=== PATIENT | male | born 1935 | race African-American/Black ===

== ENCOUNTER → 2019-01-23 | Outpatient (CLI) | payer MEDICARE, BC ==
[~2019-01-23] MED LIST: AMLO10TA80 PO; ASPI-1158 PO; CALC667C PO; FOLI0.8T23 PO; GLIP5TAB12 PO; HYDR-4135 PO; LEVO25TA7 PO; OMEP40CA34 PO; SODI650T PO
== END | disposition home or self-care (01) ==
LOC: CARD 09:30
PROVIDERS: ATTEND Psychiatry & Neurology Neurology
DX: G25.0 Essential tremor (principal); R41.3 Other amnesia

== ENCOUNTER 2019-02-25 18:52 | Inpatient (IN) | payer MEDICARE, BC ==
[~2019-02-25] VITALS: Ht 175.3 cm; Wt 59.4 kg
[2019-02-25 20:04] LABS: BASOPHILS % 0.7 % (0.0-2.0); EOSINOPHILS % 0.9 % (0.0-5.0); HEMATOCRIT. 24.8 % (42.0-52.0); LYMPHOCYTES % 29.3 % (20.0-50.0); MEAN CORPUSCULAR HEMOGLOBIN 29.2 pg (28.0-32.0); MEAN CORPUSCULAR VOLUME 90.6 fL (80.0-94.0); MEAN PLATELET VOLUME 8.3 fl (7.4-10.4); MONOCYTES % 11.1 % (2.0-8.0); PLATELET 255 x1000/uL (130-400); RED BLOOD CELL COUNT 2.74 mill/uL (4.7-6.1); RED CELL DISTRIBUTION WIDTH 16.9 % (11.6-14.6)
[2019-02-25 20:10] LABS: CHLORIDE 112 mEq/L (98-107)
[2019-02-25 20:16] LABS: PHOSPHORUS 2.7 mg/dL (2.5-4.9)
[2019-02-25] MEDS ORDERED: POTASSIUM CHLORIDE 10MEQ TABLET SR PO SCH (21:45)
[2019-02-26] MEDS ORDERED: LORAZEPAM 0.5MG TABLET PO PRN (10:30)
[2019-02-26] MEDS ORDERED: ACETAMINOPHEN 325MG TABLET PO PRN (10:30)
[2019-02-26] MEDS ORDERED: GUAIFENESIN 200MG/10ML SUGAR FREE UDC PO PRN (10:30)
[2019-02-26] MEDS ORDERED: MAGNESIUM/ALUMINUM HYDROXIDE/SIMETHICONE 30ML UDC PO PRN (10:30)
[2019-02-26] MEDS ORDERED: HYDROCODONE/ACETAMINOPHEN 5/325MG TABLET PO PRN (10:30)
[2019-02-26] MEDS ORDERED: ONDANSETRON HCL 4MG/2ML INJ IV PRN (10:30)
[2019-02-26] MEDS ORDERED: ACETAMINOPHEN 650MG SUPP PR PRN (10:30)
[2019-02-26] MEDS ORDERED: IPRATROPIUM/ALBUTEROL 0.5-3(2.5)MG/3ML NEB INH PRN (10:30)
[2019-02-26] MEDS ORDERED: CLONIDINE 0.1MG TABLET PO PRN (10:30)
[2019-02-26] MEDS ORDERED: DOCUSATE SODIUM 100MG CAPSULE PO PRN (10:30)
[2019-02-26] MEDS ORDERED: DIPHENHYDRAMINE 50MG/ML VIAL IV PRN (10:30)
[2019-02-26 10:52] LABS: BG BASE EXCESS -3.2 mmol/L (-2.0-2.0); BG DEOXYHEMOGLOBIN 2.6 % (0.0-5.0); BG HCO3 ACT 21.8 mmol/L (22.0-26.0); BG METHEMOGLOBIN 0.1 % (0.0-1.5); BG OXYGEN SATURATION 97.4 % (92.0-98.5); BG OXYHEMOGLOBIN 97.3 % (94.0-97.0); BG PCO2 39.1 mmHg (35.0-45.0); BG PH 7.365 (7.350-7.450); BG PO2 103.2 mmHg (75.0-100.0); BG SAMPLE SITE RIGHT BRACHIAL; BG TOTAL HEMOGLOBIN 9.8 g/dL (12.0-18.0); BG VENT MODE ROOM AIR
[2019-02-26 11:02] VITALS: BP 161/81
[2019-02-26] MEDS: AMLODIPINE 5MG TABLET PO SCH (11:31)
[2019-02-26 12:00] VITALS: BP 169/75
[2019-02-26 12:01] LABS: HEMATOCRIT 25.5 % (42.0-52.0); HEMOGLOBIN 8.1 g/dL (14.0-18.0); MEAN CORPUSCULAR HEMOGLOBIN 28.7 pg (28.0-32.0); MEAN CORPUSCULAR VOLUME 90.4 fL (80.0-94.0); PLATELET 270 x1000/uL (130-400); RED BLOOD CELL COUNT 2.82 mill/uL (4.7-6.1); RED CELL DISTRIBUTION WIDTH 16.7 % (11.6-14.6)
[2019-02-26 12:13] LABS: PHOSPHORUS 2.7 mg/dL (2.5-4.9)
[2019-02-26 12:14] LABS: INR 1.1
[2019-02-26] MEDS ORDERED: ROSU5TAB10 MT (13:15)
[2019-02-26] MEDS ORDERED: FOLI0.8T23 MT (13:15)
[2019-02-26] MEDS ORDERED: FURO-151 MT (13:15)
[2019-02-26] MEDS ORDERED: SITA50TA3 MT (13:15)
[2019-02-26] MEDS ORDERED: TAMS0.4C31 MT (13:16)
[2019-02-26] MEDS ORDERED: LOPE2CAP MT (13:18)
[2019-02-26] MEDS ORDERED: DEXTROSE 50% WATER 50ML SYRINGE IV PRN (13:30)
[2019-02-26] MEDS ORDERED: FUROSEMIDE 40MG/4ML VIAL IVP SCH (14:00)
[2019-02-26 16:00] VITALS: BP 152/76
[2019-02-26] MEDS: DEXT 5%/0.45% NACL KCL 10MEQ/L 1,000 ML IV SCH (16:45)
[2019-02-26] MEDS: INSULIN LISPRO 100 UNITS/ML SUBCUT SCH ×2 (17:40→21:59)
[2019-02-26] MEDS: BLOOD SUGAR DIAGNOSTIC STRIP TEST SCH ×2 (18:00→21:53)
[2019-02-26 19:26] LABS: CLARITY URINE CLOUDY (CLEAR); COLOR URINE YELLOW (YELLOW); KETONES URINE NEGATIVE (NEGATIVE); LEUKOCYTE ESTERASE URINE 2+ (NEGATIVE); NITRITE URINE NEGATIVE (NEGATIVE); OCCULT BLOOD URINE TRACE (NEGATIVE); PH URINE 5.5 (4.5-8.0); PROTEIN URINE 1+ (NEGATIVE); UROBILINOGEN URINE 0.2 E.U./dL (0.2-1.0)
[2019-02-26 19:39] LABS: METHADONE URINE SCREEN NEGATIVE (NEGATIVE); OPIATES URINE SCREEN NEGATIVE (NEGATIVE); PHENCYCLIDINE URINE SCREEN NEGATIVE (NEGATIVE)
[2019-02-26 19:40] LABS: *AMPHETAMINES SCREEN URINE NEGATIVE (NEGATIVE); *BARBITURATES SCREEN URINE NEGATIVE (NEGATIVE); *BENZODIAZEPINES SCREEN URINE NEGATIVE (NEGATIVE); *COCAINE SCREEN URINE NEGATIVE (NEGATIVE); CANNABINOID URINE SCREEN NEGATIVE (NEGATIVE)
[2019-02-26 20:00] VITALS: BP 142/72
[2019-02-26] MEDS ORDERED: APIXABAN 5 MG TABLET PO SCH (21:45)
[2019-02-26] MEDS ORDERED: APIXABAN 2.5 MG TABLET PO SCH (22:00)
[2019-02-26] MEDS ORDERED: APIXABAN 5 MG TABLET PO NR (22:30)
[2019-02-27] VITALS: BP 148/72
[2019-02-27 04:00] VITALS: BP 122/72
[2019-02-27] MEDS: FUROSEMIDE 20MG/2ML VIAL IV SCH (05:35)
[2019-02-27] MEDS: DEXT 5%/0.45% NACL KCL 10MEQ/L 1,000 ML IV SCH ×2 (05:35→18:19)
[2019-02-27] MEDS: BLOOD SUGAR DIAGNOSTIC STRIP TEST SCH ×4 (06:05→21:00)
[2019-02-27] MEDS: INSULIN LISPRO 100 UNITS/ML SUBCUT SCH ×4 (06:05→21:00)
[2019-02-27 06:08] LABS: BASOPHILS % 0.7 % (0.0-2.0); EOSINOPHILS % 1.3 % (0.0-5.0); HEMOGLOBIN. 8.5 g/dL (14.0-18.0); LYMPHOCYTES % 30.8 % (20.0-50.0); MEAN CORPUSCULAR HEMOGLOBIN 28.5 pg (28.0-32.0); MEAN CORPUSCULAR VOLUME 90.8 fL (80.0-94.0); MEAN PLATELET VOLUME 8.7 fl (7.4-10.4); MONOCYTES % 7.5 % (2.0-8.0); NEUTROPHILS % 59.7 % (40.0-76.0); PLATELET 291 x1000/uL (130-400); RED BLOOD CELL COUNT 2.98 mill/uL (4.7-6.1); RED CELL DISTRIBUTION WIDTH 16.5 % (11.6-14.6)
[2019-02-27 06:26] LABS: CHLORIDE 112 mEq/L (98-107)
[2019-02-27 06:36] LABS: LDL CHOLESTEROL 35 mg/dL (5-100)
[2019-02-27 06:38] LABS: HDL CHOLESTEROL 46 mg/dL (40-59)
[2019-02-27 08:00] VITALS: BP 123/69
[2019-02-27] MEDS ORDERED: POTASSIUM CHLORIDE 20MEQ/PACKET PO SCH ×2 (09:15→14:00)
[2019-02-27] MEDS: AMLODIPINE 5MG TABLET PO SCH (10:03)
[2019-02-27] MEDS: APIXABAN 5 MG TABLET PO SCH ×2 (10:03→17:15)
[2019-02-27 12:00] VITALS: BP 176/91
[2019-02-27 16:00] VITALS: BP 144/68
[2019-02-27] MEDS: LEVOTHYROXINE SODIUM 25MCG TABLET PO SCH (17:15)
[2019-02-27 20:00] VITALS: BP 148/77
[2019-02-28] VITALS: BP 150/77
[2019-02-28 04:00] VITALS: BP 125/72
[2019-02-28 06:13] LABS: HEMATOCRIT 25.2 % (42.0-52.0); HEMOGLOBIN 8.1 g/dL (14.0-18.0); MEAN CORPUSCULAR HEMOGLOBIN 28.8 pg (28.0-32.0); MEAN CORPUSCULAR VOLUME 89.6 fL (80.0-94.0); PLATELET 273 x1000/uL (130-400); RED BLOOD CELL COUNT 2.81 mill/uL (4.7-6.1); RED CELL DISTRIBUTION WIDTH 16.6 % (11.6-14.6)
[2019-02-28] MEDS: LEVOTHYROXINE SODIUM 25MCG TABLET PO SCH (06:35)
[2019-02-28] MEDS: OMEPRAZOLE 20MG CAPSULE EXTENDED RELEASE PO SCH (06:35)
[2019-02-28] MEDS: BLOOD SUGAR DIAGNOSTIC STRIP TEST SCH ×4 (06:41→20:43)
[2019-02-28] MEDS: FUROSEMIDE 20MG/2ML VIAL IV SCH (06:41)
[2019-02-28] MEDS: INSULIN LISPRO 100 UNITS/ML SUBCUT SCH ×4 (06:41→20:46)
[2019-02-28] MEDS: POTASSIUM CHLORIDE 20MEQ/PACKET PO SCH ×3 (07:40→17:25)
[2019-02-28 08:00] VITALS: BP 140/74
[2019-02-28] MEDS: DEXT 5%/0.45% NACL KCL 10MEQ/L 1,000 ML IV SCH (08:00)
[2019-02-28] MEDS ORDERED: MEDICATION NOT ON FORMULARY EA (Omeprazole 40 MG) PO SCH (09:00)
[2019-02-28] MEDS: AMLODIPINE 5MG TABLET PO SCH ×2 (09:36→17:24)
[2019-02-28] MEDS: TAMSULOSIN HCL 0.4MG SR CAPSULE PO SCH (09:37)
[2019-02-28] MEDS: APIXABAN 5 MG TABLET PO SCH ×2 (09:37→17:25)
[2019-02-28] MEDS ORDERED: METOPROLOL TARTRATE 25MG TABLET PO NR (10:45)
[2019-02-28 12:00] VITALS: BP 136/68
[2019-02-28] MEDS: IRON SUCROSE COMPLEX 100 MG/5 ML ML IV SCH (13:13)
[2019-02-28 16:00] VITALS: BP 113/53
[2019-02-28 20:00] VITALS: BP 127/66
[2019-02-28] MEDS: METOPROLOL TARTRATE 25MG TABLET PO SCH (20:42)
[2019-03-01] VITALS: BP 129/72
[2019-03-01] MEDS: DEXT 5%/0.45% NACL KCL 10MEQ/L 1,000 ML IV SCH ×2 (01:12→18:14)
[2019-03-01 04:00] VITALS: BP 139/69
[2019-03-01 06:33] LABS: BASOPHILS % 0.8 % (0.0-2.0); EOSINOPHILS % 1.2 % (0.0-5.0); HEMATOCRIT. 24.5 % (42.0-52.0); HEMOGLOBIN. 7.7 g/dL (14.0-18.0); LYMPHOCYTES % 21.3 % (20.0-50.0); MEAN CORPUSCULAR HEMOGLOBIN 28.4 pg (28.0-32.0); MEAN CORPUSCULAR VOLUME 90.3 fL (80.0-94.0); MEAN PLATELET VOLUME 8.3 fl (7.4-10.4); MONOCYTES % 12.1 % (2.0-8.0); NEUTROPHILS % 64.6 % (40.0-76.0); PLATELET 278 x1000/uL (130-400); RED BLOOD CELL COUNT 2.71 mill/uL (4.7-6.1); RED CELL DISTRIBUTION WIDTH 17.1 % (11.6-14.6)
[2019-03-01] MEDS: BLOOD SUGAR DIAGNOSTIC STRIP TEST SCH ×4 (06:42→20:24)
[2019-03-01] MEDS: INSULIN LISPRO 100 UNITS/ML SUBCUT SCH ×4 (06:42→20:37)
[2019-03-01] MEDS: OMEPRAZOLE 20MG CAPSULE EXTENDED RELEASE PO SCH (06:56)
[2019-03-01] MEDS: FUROSEMIDE 20MG/2ML VIAL IV SCH (06:56)
[2019-03-01] MEDS: LEVOTHYROXINE SODIUM 25MCG TABLET PO SCH (06:56)
[2019-03-01 08:00] VITALS: BP 164/98
[2019-03-01] MEDS: POTASSIUM CHLORIDE 20MEQ/PACKET PO SCH ×2 (08:13→18:24)
[2019-03-01] MEDS: APIXABAN 5 MG TABLET PO SCH ×2 (08:19→19:00)
[2019-03-01] MEDS: AMLODIPINE 5MG TABLET PO SCH ×2 (08:19→18:23)
[2019-03-01] MEDS: METOPROLOL TARTRATE 25MG TABLET PO SCH ×2 (08:20→20:37)
[2019-03-01] MEDS: TAMSULOSIN HCL 0.4MG SR CAPSULE PO SCH (08:20)
[2019-03-01 08:29] LABS: PHOSPHORUS 2.9 mg/dL (2.5-4.9)
[2019-03-01 12:00] VITALS: BP 139/71
[2019-03-01] MEDS: IRON SUCROSE COMPLEX 100 MG/5 ML ML IV SCH (12:23)
[2019-03-01] MEDS ORDERED: METRONIDAZOLE 500MG TABLET PO SCH (14:00)
[2019-03-01 16:00] VITALS: BP 126/69
[2019-03-01 19:44] VITALS: BP 132/74
== END 2019-03-01 21:27 | disposition home health service (06) | DRG 682 ==
LOC: ER 18:52 → 8WST 22:28 → EDBEDREQTM 22:29 → EDBEDREQ 22:29 → ENRESERV 02-26 07:36
PROVIDERS: ADMIT Internal Medicine; ATTEND Internal Medicine
DX: N17.9 Acute kidney failure, unspecified (principal); I50.33 Acute on chronic diastolic (congestive) heart failure; E43 Unspecified severe protein-calorie malnutrition; I13.0 Hypertensive heart and chronic kidney disease with heart failure and stage 1 through stage 4 chronic kidney disease, or unspecified chronic kidney disease; Z68.1 Body mass index [BMI] 19.9 or less, adult; N18.4 Chronic kidney disease, stage 4 (severe); E87.6 Hypokalemia; E11.22 Type 2 diabetes mellitus with diabetic chronic kidney disease; E78.5 Hyperlipidemia, unspecified; N40.0 Benign prostatic hyperplasia without lower urinary tract symptoms; E03.9 Hypothyroidism, unspecified; E86.0 Dehydration; R19.7 Diarrhea, unspecified; D50.9 Iron deficiency anemia, unspecified; N27.0 Small kidney, unilateral; N13.30 Unspecified hydronephrosis; R15.9 Full incontinence of feces; D63.1 Anemia in chronic kidney disease; E11.65 Type 2 diabetes mellitus with hyperglycemia; Z79.84 Long term (current) use of oral hypoglycemic drugs; Z79.899 Other long term (current) drug therapy; Z79.82 Long term (current) use of aspirin; Z86.718 Personal history of other venous thrombosis and embolism; Z85.028 Personal history of other malignant neoplasm of stomach; Z90.3 Acquired absence of stomach [part of]; Z95.2 Presence of prosthetic heart valve; Z99.2 Dependence on renal dialysis
CPT/HCPCS: 36415; 36600; 71045; 72148; 74176; 76770; 80048; 80061; 80305; 82270; 82330; 82375; 82570; 82805; 82962; 83036; 83540; 83550; 83735; 83880; 83935; 83970; 84100; 84153; 84300; 84439; 84443; 84481; 84484; 85027; 87015; 87045; 87427; 87449; 89055; 93005; 93306; 93970; 96374; 99285; J1815; J1940; G0103

== ENCOUNTER → 2019-05-22 | Outpatient (CLI) | payer MEDICARE, BC ==
[~2019-05-22] MED LIST changes: +FOLI0.8T23 MT; +LOPE2CAP MT; +ROSU5TAB10 MT; +SITA50TA3 MT; +TAMS0.4C31 MT
== END | disposition home or self-care (01) ==
LOC: US 12:44
PROVIDERS: ATTEND Internal Medicine Nephrology
DX: I82.409 Acute embolism and thrombosis of unspecified deep veins of unspecified lower extremity (principal); R60.0 Localized edema
CPT/HCPCS: 93970